=== PATIENT | male | born 1955 | race Caucasian/White ===

== ENCOUNTER 2019-08-20 03:07 | Emergency (ER) | payer OTHER ==
[2019-08-20] MEDS ORDERED: ONDANSETRON 4 MG/2 ML VIAL ONE (03:44)
[2019-08-20] MEDS ORDERED: FAMOTIDINE 20 MG/2 ML VIAL IV ONE (03:44)
[2019-08-20] MEDS ORDERED: FENTANYL CITR 100 MCG/2 ML ONE (03:44)
[2019-08-20 03:51] LABS: Protime INR 1.06
[2019-08-20 03:55] LABS: Absolute Lymphocytes (CBC) 1.2 K/uL (0.7-4.9); Basophils % 0.5 % (0-1.3); Hematocrit 48.3 % (39.6-49.0); Lymphocytes % 10.2 % (15.3-44.8); MPV 8.8 fL (7.6-11.3); RBC Red Blood Cell Count 5.73 M/uL (4.33-5.43)
[2019-08-20 04:09] LABS: ALT/SGPT 25 U/L (12-78); AST/SGOT 21 U/L (15-37); Albumin 4.1 g/dL (3.4-5.0); Alkaline Phosphatase 58 U/L (45-117); BUN Blood Urea Nitrogen 24 mg/dL (7-18); Bicarbonate 28 mmol/L (21-32); Bilirubin Direct 0.1 mg/dL (0-0.2); Bilirubin Total 0.6 mg/dL (0.2-1.0); Glucose Level 111 mg/dL (74-106); Lipase 201 U/L (73-393); Magnesium 2.1 mg/dL (1.8-2.4); NT PRO-BNP 49 pg/mL (<125); Potassium 3.8 mmol/L (3.5-5.1); Protein, Total 7.7 g/dL (6.4-8.2); Sodium Level 141 mmol/L (136-145); Troponin (Emerg Dept Use Only) < 0.02 ng/mL (0.0-0.045)
[2019-08-20] MEDS ORDERED: NA CHLORIDE 0.9% 1,000 ML ONE (04:24)
--- NOTE | 2019-08-20 05:10 | ER ---
Nurse's Notes [facility] Name: Cuauhtemoc Woo Age: 63 yrs Sex: Male : 1955 Arrival Date: 08/20/2019 Time: 03:08 Bed 15 Private MD: Diagnosis: Dysphagia;Epigastric pain Presentation: 08/20 03:08 Presenting complaint: Patient states: It started last night when I was eating and I was jb4 having a hard time swallowing, which is not new. Then I vomited a few times then the chest pain started with a strong heavy pressure between my stomach and my upper chest. 03:08 Transition of care: patient was not received from another setting of care. Onset of jb4 symptoms was August 19, 2019. Risk Assessment: Do you want to hurt yourself or someone else? Patient reports no desire to harm self or others. Initial Sepsis Screen: Does the patient meet any 2 criteria? No. Patient's initial sepsis screen is negative. Does the patient have a suspected source of infection? No. Patient's initial sepsis screen is negative. Care prior to arrival: None. 03:08 Method Of Arrival: Wheelchair jb4 03:08 Acuity: CASIMIRO 3 jb4 Historical: - Allergies: 03:08 No Known Allergies; jb4 - Home Meds: 03:08 telmisartan 40 mg oral tab 1 tab once daily [Active]; levothyroxine 50 mcg tab 1 tab jb4 once daily [Active]; fenofibrate oral 67mg oral once daily [Active]; - PMHx: 03:08 Hypertension; High Cholesterol; jb4 03:08 Hypothyroidism; jb4 - PSHx: 03:08 feeding tube; jb4 - Immunization history:: Adult Immunizations up to date. - Social history:: Smoking status: Patient/guardian denies using tobacco, Patient/guardian denies using alcohol. - Ebola Screening: : No symptoms or risks identified at this time. Screenin:08 Abuse screen: Denies threats or abuse. Nutritional screening: No deficits noted. jb4 Tuberculosis screening: No symptoms or risk factors identified. Fall Risk None identified. Assessment: 03:37 General: Appears in no apparent distress. uncomfortable, Behavior is calm, cooperative, jb4 appropriate for age. Pain: Complains of pain in diaphragm, upper chest Pain does not radiate. Pain currently is 8 out of 10 on a pain scale. Quality of pain is described as pressure, Pain began 1 day ago. Neuro: Level of Consciousness is awake, alert, obeys commands, Oriented to person, place, time, situation. Cardiovascular: Patient's skin is warm and dry. Rhythm is sinus rhythm. Respiratory: Airway is patent Respiratory effort is even, unlabored, Respiratory pattern is regular, symmetrical. GI: No deficits noted. No signs and/or symptoms were reported involving the gastrointestinal system. : No deficits noted. No signs and/or symptoms were reported regarding the genitourinary system. EENT: No deficits noted. No signs and/or symptoms were reported regarding the EENT system. Derm: Skin is intact, Skin is pink, warm \T\ dry. Musculoskeletal: Circulation, motion, and sensation intact. Range of motion: intact in all extremities. 04:44 Reassessment: Patient appears in no apparent distress at this time. Patient and/or jb4 family updated on plan of care and expected duration. Pain level reassessed. Patient is alert, oriented x 3, equal unlabored respirations, skin warm/dry/pink. 05:17 Reassessment: Patient appears in no apparent distress at this time. Patient and/or jb4 family updated on plan of care and expected duration. Pain level reassessed. Patient is alert, oriented x 3, equal unlabored respirations, skin warm/dry/pink. PT verbalized understanding of d/c and follow up instructions. Ambulated out of ED with a steady gait. Vital Signs: 03:08 BP 129 / 96; Pulse 64; Resp 16; Temp 98.2(TE); Pulse Ox 95% on R/A; Weight 88.45 kg banner (R); Height 5 ft. 10 in. (177.80 cm) (R); Pain 8/10; 04:00 BP 81 / 51; Pulse 38; Resp 10; Pulse Ox 98% ; sh8 04:15 BP 108 / 70 LA (auto/reg); Pulse 53 LA; Resp 10; Pulse Ox 92% on R/A; sh8 05:00 BP 114 / 70; Pulse 48; Resp 15; Pulse Ox 96% on R/A; sh8 03:08 Body Mass Index 27.98 (88.45 kg, 177.80 cm) banner ED Course: 03:08 Patient arrived in ED. ds1 03:08 Arm band placed on right wrist. EKG completed in triage. Results shown to MD. jb4 03:08 Patient has correct armband on for positive identification. Placed in gown. Bed in low jb4 position. Call light in reach. Side rails up X 1. ekg monitor tech on. Pulse ox on. NIBP on. 03:13 Chandler Hardy, RN is Primary Nurse. jb4 03:24 No provider procedures requiring assistance completed. Initial lab(s) drawn, by or, jb4 sent to lab. Inserted saline lock: 20 gauge in right antecubital area, using aseptic technique. Blood collected. Patient maintains SpO2 saturation greater than 95% on room air. 03:30 Derrell Rick MD is Attending Physician. gs 03:31 Triage completed. jb4 03:42 Basic Metabolic Panel Sent. jb4 03:42 CBC with Diff Sent. jb4 03:42 LFT's Sent. jb4 03:42 Magnesium Sent. jb4 03:42 NT PRO-BNP Sent. jb4 03:42 PT-INR Sent. jb4 03:42 Troponin (emerg Dept Use Only) Sent. jb4 04:08 XRAY Chest (1 view) In Process Unspecified. EDMS 05:09 George Mcguire MD is Referral Physician. gs 05:19 IV discontinued, intact, bleeding controlled, No redness/swelling at site. Pressure jb4 dressing applied. Administered Medications: 03:50 Drug: Zofran 4 mg Route: IVP; Site: right antecubital; jb4 04:20 Follow up: Response: No adverse reaction; Nausea is decreased jb4 03:52 Drug: Pepcid 20 mg Route: IVP; Site: right antecubital; jb4 05:00 Follow up: Response: No adverse reaction jb4 03:53 Drug: fentaNYL (PF) 50 mcg Route: IVP; Site: right antecubital; jb4 04:20 Follow up: Response: No adverse reaction; Pain is decreased; RASS: Alert and Calm (0) jb4 04:29 Drug: NS 0.9% 1000 ml Route: IV; Rate: 1 bolus; Site: right antecubital; jb4 05:20 Follow up: Response: No adverse reaction; IV Status: Completed infusion; IV Intake: jb4 1000ml Intake: 05:20 IV: 1000ml; Total: 1000ml. jb4 Outcome: 05:09 Discharge ordered by . maik 05:19 Discharged to home ambulatory, with family. jb4 05:19 Condition: stable 05:19 Discharge instructions given to patient, family, Instructed on discharge instructions, follow up and referral plans. Demonstrated understanding of instructions, follow-up care. 05:20 Patient left the ED. jb4 Signatures: Dispatcher [employer] EDN[facility] Lucy Pitts ds1 Chandler Hardy RN RN jb4 Derrell Rick MD MD Ksenia Osborne sh8 Corrections: (The following items were deleted from the chart) 03:50 03:42 LIPASE+C.LAB.JONNY drawn and sent. [address]
--- NOTE | 2019-08-20 05:10 | EDPHYS ---
Physician Documentation [facility] Name: Cuauhtemoc Woo Age: 63 yrs Sex: Male : 1955 Arrival Date: 08/20/2019 Time: 03:08 Bed 15 Private MD: ED Physician Derrell Rick HPI: 08/20 04:57 This 63 yrs old Male presents to ER via Wheelchair with complaints of gs epigastric. 04:58 The patient presents with abdominal pain in the epigastric area. Onset: The gs symptoms/episode began/occurred last night. The symptoms radiate to chest. Associated signs and symptoms: Pertinent positives: vomiting. The symptoms are described as burning. Modifying factors: The symptoms are alleviated by nothing, the symptoms are aggravated by food. Severity of pain: At its worst the pain was severe in the emergency department the pain has improved moderately. The patient has experienced similar episodes in the past, multiple times, but today's symptoms are worse, more painful. Historical: - Allergies: 03:08 No Known Allergies; jb4 - Home Meds: 03:08 telmisartan 40 mg oral tab 1 tab once daily [Active]; levothyroxine 50 mcg tab 1 tab jb4 once daily [Active]; fenofibrate oral 67mg oral once daily [Active]; - PMHx: 03:08 Hypertension; High Cholesterol; jb4 03:08 Hypothyroidism; jb4 - PSHx: 03:08 feeding tube; jb4 - Immunization history:: Adult Immunizations up to date. - Social history:: Smoking status: Patient/guardian denies using tobacco, Patient/guardian denies using alcohol. - Ebola Screening: : No symptoms or risks identified at this time. ROS: 04:58 All other systems are negative. gs Exam: 04:58 Head/Face: Normocephalic, atraumatic. Eyes: Pupils equal round and reactive to light, gs extra-ocular motions intact. Lids and lashes normal. Conjunctiva and sclera are non-icteric and not injected. Cornea within normal limits. Periorbital areas with no swelling, redness, or edema. ENT: Nares patent. No nasal discharge, no septal abnormalities noted. Tympanic membranes are normal and external auditory canals are clear. Oropharynx with no redness, swelling, or masses, exudates, or evidence of obstruction, uvula midline. Mucous membranes moist. Neck: Trachea midline, no thyromegaly or masses palpated, and no cervical lymphadenopathy. Supple, full range of motion without nuchal rigidity, or vertebral point tenderness. No Meningismus. Chest/axilla: Normal chest wall appearance and motion. Nontender with no deformity. No lesions are appreciated. Cardiovascular: Regular rate and rhythm with a normal S1 and S2. No gallops, murmurs, or rubs. Normal PMI, no JVD. No pulse deficits. Respiratory: Lungs have equal breath sounds bilaterally, clear to auscultation and percussion. No rales, rhonchi or wheezes noted. No increased work of breathing, no retractions or nasal flaring. Back: No spinal tenderness. No costovertebral tenderness. Full range of motion. Skin: Warm, dry with normal turgor. Normal color with no rashes, no lesions, and no evidence of cellulitis. MS/ Extremity: Pulses equal, no cyanosis. Neurovascular intact. Full, normal range of motion. Neuro: Awake and alert, GCS 15, oriented to person, place, time, and situation. Cranial nerves II-XII grossly intact. Motor strength 5/5 in all extremities. Sensory grossly intact. Cerebellar exam normal. Normal gait. 04:58 Constitutional: The patient appears alert, awake. 04:58 ECG was reviewed by the Attending Physician. 04:58 Abdomen/GI: Palpation: moderate abdominal tenderness, in the epigastric area. Vital Signs: 03:08 BP 129 / 96; Pulse 64; Resp 16; Temp 98.2(TE); Pulse Ox 95% on R/A; Weight 88.45 kg 4 (R); Height 5 ft. 10 in. (177.80 cm) (R); Pain 8/10; 04:00 BP 81 / 51; Pulse 38; Resp 10; Pulse Ox 98% ; sh8 04:15 BP 108 / 70 LA (auto/reg); Pulse 53 LA; Resp 10; Pulse Ox 92% on R/A; sh8 05:00 BP 114 / 70; Pulse 48; Resp 15; Pulse Ox 96% on R/A; sh8 03:08 Body Mass Index 27.98 (88.45 kg, 177.80 cm) [facility] MDM: 03:30 Patient medically screened. 04:58 Differential diagnosis: gastritis, gastroesophageal reflux disease, non-specific abd gs pain. Data reviewed: vital signs, nurses notes. Response to treatment: the patient's symptoms have markedly improved after treatment, the patient's condition has returned to base line. Physician consultation: George Mcguire MD and will see patient shortly, later today. 08/20 03:31 Order name: Basic Metabolic Panel; Complete Time: 04:19 gs 08/20 03:31 Order name: CBC with Diff; Complete Time: 04:19 gs 08/20 03:31 Order name: LFT's; Complete Time: 04:19 gs 08/20 03:31 Order name: Magnesium; Complete Time: 04:19 gs 08/20 03:31 Order name: NT PRO-BNP; Complete Time: 04:19 gs 08/20 03:31 Order name: PT-INR; Complete Time: 04:19 gs 08/20 03:31 Order name: Troponin (emerg Dept Use Only); Complete Time: 04:19 gs 08/20 03:31 Order name: XRAY Chest (1 view) 08/20 03:50 Order name: Lipase; Complete Time: 04:19 EDMS 08/20 03:31 Order name: EKG; Complete Time: 03:32 gs 08/20 03:31 Order name: Cardiac monitoring; Complete Time: 03:43 gs 08/20 03:31 Order name: EKG - Nurse/Tech; Complete Time: 03:43 08/20 03:31 Order name: IV Saline Lock; Complete Time: 03:43 gs 08/20 03:31 Order name: Labs collected and sent; Complete Time: 03:42 gs 08/20 03:31 Order name: O2 Per Protocol; Complete Time: 03:42 08/20 03:31 Order name: O2 Sat Monitoring; Complete Time: 03:42 gs EC:58 Rate is 63 beats/min. Rhythm is regular. ND interval is prolonged. QRS interval is gs prolonged. Q waves are Old in leads V1, V2. T waves are Inverted in lead aVL. Clinical impression: NSR w/ Non-specific ST/T Changes and Abnormal EKG without significant change. Interpreted by me. Administered Medications: 03:50 Drug: Zofran 4 mg Route: IVP; Site: right antecubital; jb4 04:20 Follow up: Response: No adverse reaction; Nausea is decreased jb4 03:52 Drug: Pepcid 20 mg Route: IVP; Site: right antecubital; jb4 05:00 Follow up: Response: No adverse reaction 4 03:53 Drug: fentaNYL (PF) 50 mcg Route: IVP; Site: right antecubital; jb4 04:20 Follow up: Response: No adverse reaction; Pain is decreased; RASS: Alert and Calm (0) jb4 04:29 Drug: NS 0.9% 1000 ml Route: IV; Rate: 1 bolus; Site: right antecubital; jb4 05:20 Follow up: Response: No adverse reaction; IV Status: Completed infusion; IV Intake: jb4 1000ml Disposition: 08/20/19 05:09 Discharged to Home. Impression: Dysphagia, Epigastric pain. - Condition is Stable. - Discharge Instructions: Dysphagia, Abdominal Pain, Adult, [id number]. - Medication Reconciliation Form, Thank You Letter, Antibiotic Education, Prescription Opioid Use form. - Follow up: Private Physician; When: 2 - 3 days; Reason: Re-evaluation by your physician. Follow up: George Mcguire MD; When: 2 - 3 days; Reason: Re-evaluation by your physician. Signatures: Dispatcher [employer] [facility] Chandler Hardy RN RN jb4 Derrell Rick MD MD Corrections: (The following items were deleted from the chart) 03:50 03:41 LIPASE+C.LAB.BRZ ordered. [facility] 05:09 05:09 08/20/2019 05:09 Discharged to Home. Impression: Dysphagia; Epigastric pain. Condition is Stable. Forms are Medication Reconciliation Form, Thank You Letter, Antibiotic Education, Prescription Opioid Use. Follow up: Private Physician; When: 2 - 3 days; Reason: Re-evaluation by your physician. 05:20 05:09 08/20/2019 05:09 Discharged to Home. Impression: Dysphagia; Epigastric pain. 4 Condition is Stable. Forms are Medication Reconciliation Form, Thank You Letter, Antibiotic Education, Prescription Opioid Use. Follow up: Private Physician; When: 2 - 3 days; Reason: Re-evaluation by your physician. Follow up: George Mcguire; When: 2 - 3 days; Reason: Re-evaluation by your physician. gs
[2019-08-20 05:26] VITALS: TEMP 98.2
[2019-08-20 05:30] VITALS: BP 114/70; O2SAT 96
--- NOTE | 2019-08-20 07:32 | RAD REPORT ---
EXAM DESCRIPTION: RAD - Chest Single View - 08/20/2019 4:08 am CLINICAL HISTORY: Chest pain COMPARISON: November 2013 TECHNIQUE: AP portable chest image was obtained [id number] hours . FINDINGS: Lungs are clear. Heart and vasculature are normal. No measurable pleural effusion and no p neumothorax. No acute bony abnormality seen. No acute aortic findings suspected. IMPRESSION: No acute cardiopulmonary process. No significant interval change.
--- NOTE | 2019-08-20 08:28 | EKG ---
Test Date: 2019-08-20 Test Time: 03:22:58 Environmental Science Program Director: DENNIS MEASUREMENT RESULTS: Intervals: Rate: 63 HI: 212 QRSD: 126 QT: 428 QTc: 437 [place]: P: 63 HI: 212 QRS: -56 T: 69 INTERPRETIVE STATEMENTS: Sinus rhythm with 1st degree AV block Left axis deviation Left ventricular hypertrophy with QRS widening and repolarization abnormality Cannot rule out Septal infarct, age undetermined Abnormal ECG Compared to ECG 12/21/2013 15:25:19 First degree AV block now present Left-axis deviation now present Myocardial infarct finding now present Left anterior fascicular block no longer present Electronically Signed On 08-20-19 08:27:27 CDT by Filemon Baxter
== END 2019-08-20 05:20 | disposition home or self-care (01) ==
LOC: ER 03:07
DX: R13.10 Dysphagia, unspecified (principal); I10 Essential (primary) hypertension; E03.9 Hypothyroidism, unspecified; E78.00 Pure hypercholesterolemia, unspecified
CPT/HCPCS: 96361; 93005; 85025; 80048; 36415; 83735; 85610; 80076; 84484; 83690; 83880; 71045; 96375; 96374; 99285; J3010; J7030; J2405